=== PATIENT | male | born 1940 | race Caucasian/White ===

== ENCOUNTER → 2019-03-08 | Outpatient (CLI) | payer MEDICARE ==
[~2019-03-08] MED LIST: ALLO300 PO; AMLO5 PO; ATOR10 PO; DULO60 PO; Doxazosin Mesyla8 MG PO; Glipizide-Metf1 EAC1 PO; HYDR1TAB94 PO; METO50 PO; METPRE4DP PO; ONE DAILY FOR1 EAC2 PO; PREG150 PO; SPIR25 PO; VITAMIN D35000 UNI1 PO; ZALE10; ZESTRIL40 MG PO
== END ==
LOC: PLD 14:31 → LAB SHORT 14:31
DX: D48.5 Neoplasm of uncertain behavior of skin (principal)
CPT/HCPCS: 88341; 88342

== ENCOUNTER → 2022-02-04 | Outpatient (CLI) | payer MEDICARE ==
[2022-02-04 11:34] LABS: Creatinine, Urine Random 66.6 mg/dL (27.00-270.00); Microalb/Creat Ratio UR, Rand 492.492 mg/g (0.000-30.000)
[2022-02-04 12:27] LABS: Albumin, Blood 3.4 g/dL (3.4-5.0); Bilirubin, Total 0.4 mg/dL (0.1-1.0); Bun/Creatinine Ratio 14.3 (12.0-20.0); Calcium, Blood 9.5 mg/dL (8.5-10.1); Creatinine, Blood 1.33 mg/dL (0.60-1.20); Globulin, Blood 3.3 g/dL (2.2-4.0); Thyroid Stimulating Hormone 4.04 uIU/mL (0.360-4.800); Total Protein, Blood 6.7 g/dL (6.4-8.2)
== END | disposition home or self-care (01) ==
LOC: LAB SHORT 10:14 → LAB 10:14
PROVIDERS: Family Medicine
DX: E11.65 Type 2 diabetes mellitus with hyperglycemia (principal); E11.69 Type 2 diabetes mellitus with other specified complication; I10 Essential (primary) hypertension; E78.5 Hyperlipidemia, unspecified
CPT/HCPCS: 36415; 80053; 82043; 82570; 83036; 84443

== ENCOUNTER 2023-05-07 14:52 | Inpatient (IN) | payer MEDICARE ==
[~2023-05-07] VITALS: Ht 188 cm; Wt 161.0 kg
[2023-05-07 15:31] LABS: BASOPHILS ABSOLUTE AUTO 0.08 K/mm3 (0.00-0.23); BASOPHILS PERCENT AUTO 1 % (0-2); EOSINOPHILS ABSOLUTE AUTO 0.23 K/mm3 (0.00-0.68); EOSINOPHILS PERCENT AUTO 2 % (0-6); Hematocrit 37.4 % (37.0-53.0); IMMATURE GRAN ABSOLUTE AUTO 0.16 K/mm3 (0.00-0.10); IMMATURE GRAN PERCENT AUTO 1 % (0-1); LYMPHOCYTES ABSOLUTE AUTO 2.16 K/mm3 (0.84-5.20); LYMPHOCYTES PERCENT AUTO 14 % (21-46); MONOCYTES ABSOLUTE AUTO 1.17 K/mm3 (0.16-1.47); MONOCYTES PERCENT AUTO 8 % (4-13); Mean Corpuscular HGB 30.2 pg (26.0-34.0); Mean Corpuscular HGB Conc 32.1 g/dL (31.5-36.5); Mean Corpuscular Volume 94 fL (80-100); Mean Platelet Volume 10.9 fL (9.1-12.4); NEUTROPHILS PERCENT AUTO 75 % (41-73); Platelet Count 227 K/mm3 (150-400); RDW Coefficient Variation 13.6 % (11.7-14.2); Red Blood Cell Count 3.98 M/mm3 (4.30-5.90)
[2023-05-07 16:07] LABS: Albumin, Blood 2.7 g/dL (3.4-5.0); Albumin/Globulin Ratio 0.6 (0.8-1.8); Bilirubin, Total 0.3 mg/dL (0.1-1.0); Bun/Creatinine Ratio 25.9 (12.0-20.0); Calcium, Blood 9.1 mg/dL (8.5-10.1); Creatinine, Blood 2.39 mg/dL (0.60-1.20); Globulin, Blood 4.9 g/dL (2.2-4.0); Total Protein, Blood 7.6 g/dL (6.4-8.2)
[2023-05-07] MEDS ORDERED: OZEMPIC SC (20:06)
[2023-05-07] MEDS ORDERED: JARDIANCE PO (20:07)
[2023-05-07] MEDS ORDERED: METFORMIN (20:07)
[2023-05-07 21:09] LABS: Influenza A, PCR NEGATIVE (NEGATIVE); Influenza B, PCR NEGATIVE (NEGATIVE); Resp Syncytial Virus, PCR NEGATIVE (NEGATIVE); SARS-Cov-2 (COVID-19) PCR, MMC NEGATIVE (NEGATIVE)
[2023-05-07 22:28] VITALS: BP 145/71
[2023-05-08 04:33] VITALS: BP 140/50
--- NOTE | 2023-05-08 04:48 | NUR ---
SHIFT SUMMARY PATIENT WAS A RECENT ADMIT FOR SEPSIS THIS SHIFT. PATIENT HAD A LITER OF FLUID INFUSED AND IS COMPLETED. PATIENT HAS BEEN PLEASENT AND COOPERATIVE THIS SHIFT. VITAL SIGNS REVIEWED. PATIENT HAS NOT COMPLAINED OF PAIN, NAUSEA, SOB OR VOMITTING THIS SHIFT. BED IN LOCKED AND LOWEST POSITION. CALL LIGHT IN PLACE. WILL MONTIOR UNTIL SHIFT CHANGE.
[2023-05-08 05:19] LABS: BASOPHILS ABSOLUTE AUTO 0.05 K/mm3 (0.00-0.23); BASOPHILS PERCENT AUTO 0 % (0-2); EOSINOPHILS ABSOLUTE AUTO 0.25 K/mm3 (0.00-0.68); EOSINOPHILS PERCENT AUTO 2 % (0-6); Hematocrit 36.4 % (37.0-53.0); Hemoglobin 11.6 g/dL (13.5-17.5); IMMATURE GRAN ABSOLUTE AUTO 0.21 K/mm3 (0.00-0.10); IMMATURE GRAN PERCENT AUTO 2 % (0-1); LYMPHOCYTES ABSOLUTE AUTO 2.25 K/mm3 (0.84-5.20); LYMPHOCYTES PERCENT AUTO 16 % (21-46); MONOCYTES ABSOLUTE AUTO 1.15 K/mm3 (0.16-1.47); MONOCYTES PERCENT AUTO 8 % (4-13); Mean Corpuscular HGB Conc 31.9 g/dL (31.5-36.5); Mean Corpuscular Volume 94 fL (80-100); Mean Platelet Volume 10.8 fL (9.1-12.4); NEUTROPHILS ABSOLUTE AUTO 10.03 K/mm3 (1.96-9.15); NEUTROPHILS PERCENT AUTO 72 % (41-73); Platelet Count 250 K/mm3 (150-400); RDW Coefficient Variation 13.6 % (11.7-14.2); RDW Standard Deviation 47.2 fL (35.1-46.3); Red Blood Cell Count 3.87 M/mm3 (4.30-5.90); White Blood Cell Count 13.94 K/mm3 (4.00-11.30)
[2023-05-08 06:05] LABS: Albumin, Blood 2.5 g/dL (3.4-5.0); Albumin/Globulin Ratio 0.5 (0.8-1.8); Bilirubin, Total 0.3 mg/dL (0.1-1.0); Bun/Creatinine Ratio 26.4 (12.0-20.0); Calcium, Blood 8.8 mg/dL (8.5-10.1); Creatinine, Blood 2.12 mg/dL (0.60-1.20); Globulin, Blood 4.6 g/dL (2.2-4.0); Total Protein, Blood 7.1 g/dL (6.4-8.2)
[2023-05-08 07:12] VITALS: BP 128/67
[2023-05-08 13:05] LABS: Source, Urine Clean Catch
[2023-05-08 13:26] LABS: Appearance, Urine Clear (Clear); Bilirubin, Urine Neg (Neg); Blood, Urine Neg (Neg); Glucose Qualitative, Urine 4+ (Neg); Ketones, Urine Neg (Neg); Leukocyte Esterase, Urine Neg (Neg); Nitrite, Urine Neg (Neg); Protein, Urine Neg (Neg); Urobilinogen, Urine NORM (Normal)
[2023-05-08 14:08] LABS: Color, Urine Pale Yellow (P-Yellow)
[2023-05-08 15:14] VITALS: BP 114/58
--- NOTE | 2023-05-08 17:56 | NUR ---
SUMMARY- PT A/O X4. BEDREST, PT SITS AT THE EGDE OF BED FOR MEALS. GOT UP TO THE BATHROOM AND KNEEW STARTED TO BUCKLE. GOT A PT CONSULT, AND ORDER FOR BSC. TO CHAIR WITH GAIT BELT AND 2SBA BECAUSE KNEES ARE NOT RELIABLE. PT STARTED ON FLUID RESTRICTION AND BUMEX IV. HAD LG AMOUNT OF LIGHT CLEAR URINE OUTPUT. SENT UA. NEGATIVE FOR INFECTION. SATS ON ROOM AIR 88-90 ON ROOM AIR, HAS BEEN ON 4L USING HUMIDIFIED AIR. LUNGS CLEAR, DIM IN BASES. OCC MOIST NONPRODUCTIVE COUGH. ENC COUGHA AND DEEP BREATH. SCANT ANKLE EDEMA. NO SOB NOTED. TOLERATING FOOD AND FLUID. PT USES CALL LIGHT. WILL REPORT TO NOC RN
[2023-05-08 19:09] VITALS: BP 135/75
[2023-05-09 04:37] VITALS: BP 142/79
[2023-05-09 05:46] LABS: BASOPHILS ABSOLUTE AUTO 0.07 K/mm3 (0.00-0.23); BASOPHILS PERCENT AUTO 1 % (0-2); EOSINOPHILS ABSOLUTE AUTO 0.28 K/mm3 (0.00-0.68); EOSINOPHILS PERCENT AUTO 2 % (0-6); Hemoglobin 12.3 g/dL (13.5-17.5); IMMATURE GRAN ABSOLUTE AUTO 0.21 K/mm3 (0.00-0.10); IMMATURE GRAN PERCENT AUTO 2 % (0-1); LYMPHOCYTES ABSOLUTE AUTO 2.19 K/mm3 (0.84-5.20); LYMPHOCYTES PERCENT AUTO 18 % (21-46); MONOCYTES ABSOLUTE AUTO 0.89 K/mm3 (0.16-1.47); MONOCYTES PERCENT AUTO 7 % (4-13); Mean Corpuscular HGB Conc 31.5 g/dL (31.5-36.5); Mean Corpuscular Volume 95 fL (80-100); Mean Platelet Volume 10.8 fL (9.1-12.4); NEUTROPHILS ABSOLUTE AUTO 8.34 K/mm3 (1.96-9.15); NEUTROPHILS PERCENT AUTO 70 % (41-73); Platelet Count 254 K/mm3 (150-400); RDW Coefficient Variation 13.7 % (11.7-14.2); RDW Standard Deviation 48.2 fL (35.1-46.3); White Blood Cell Count 11.98 K/mm3 (4.00-11.30)
[2023-05-09 06:19] LABS: Albumin, Blood 2.6 g/dL (3.4-5.0); Albumin/Globulin Ratio 0.6 (0.8-1.8); Bilirubin, Total 0.3 mg/dL (0.1-1.0); Bun/Creatinine Ratio 28.1 (12.0-20.0); Calcium, Blood 9.3 mg/dL (8.5-10.1); Creatinine, Blood 1.96 mg/dL (0.60-1.20); Globulin, Blood 4.7 g/dL (2.2-4.0); Potassium, Blood 5.3 mmol/L (3.5-5.5); Total Protein, Blood 7.3 g/dL (6.4-8.2)
--- NOTE | 2023-05-09 06:34 | NUR ---
SHIFT SUMMARY NOC PT A/O X [address] [facility]. PLEASANT AND COOPERATIVE WITH CARE. NO ACUTE CHANGES TO REPORT. PT ON O2 4L/NC AND CONTINOUS BIOX MAINTAINING SPO2 > 94%. PT HAS CPAP ON WITH 4L O2 BLEED IN FOR SLEEPING. HS CBG 243 AND CNI. PT STILL UNSTEADY ON FEET AND AGREED TO USE CALL LIGHT WHEN NEEDING HELP FOR ELIMINATION NEEDS, BED ALARM ON FOR SAFETY. PT IS CURRENTLY RESTING WITH BED IN LOWEST POSITION, AND CALL LIGHT WITHIN REACH.
[2023-05-09 07:47] VITALS: BP 140/78
[2023-05-09 15:17] VITALS: BP 132/69
--- NOTE | 2023-05-09 18:56 | NUR ---
SUMMARY- PT A/O X4, SBA AMBULATES TO BATHROOM WITH WALKER AND GAIT BELT. TOLERATES ACTIVITY WELL, OCC KNEE ALEXANDRO, NEEDS SBA. LUNGS CLEAR, DIM, OCC SCATTERED COARSE, CLEARS SECRETIONS. REQUIRES OXYGEN STATES 2.5L AT HOME. USING 2.5 L WHEN AWAKE AND SATS 90-93%. TURN UP OXYGEN TO 5L WHILE NAPPING. STARTED ON IS/PEP TX TODAY. PLAN FOR DC TOMORROW, HOME WITH . WILL REPORT TO MARY GRACE RN.
[2023-05-09 19:38] VITALS: BP 131/77
[2023-05-10 03:24] VITALS: BP 139/74
--- NOTE | 2023-05-10 05:59 | NUR ---
SHIFT SUMMARY NOC A/O X 4. PLEASANT AND COOPERATIVE WITH CARE. NO ACUTE CHANGES TO REPORT. PT ON O2 4L/NC SPO2 > 94% ON BIOX. PT HAS CPAP WITH 5L O2 BLEED IN ON. PT POSSIBLE DISCHARGE HOME TODAY. PT IS CURRENTLY RESTING WITH BED IN LOWEST POSITION, AND CALL LIGHT WITHIN REACH.
[2023-05-10 07:39] VITALS: BP 118/61
--- NOTE | 2023-05-10 09:00 | NUR ---
pt laying in bed awake, a/ox3, [place], pleasant and cooperative with care, follows commands well, denies pain, but does report he feels a bit worse than yesterday as his ears are plugged up, and hearing feels like he's in a tube, Dr. Alfred was in to see him and is aware, lungs are dim t/o with a wet nonproductive cough, on 5 liters o2 via n/c, uses cpap at hs with 5 liter bleed in, hrr, ppp+2, cap refill <3sec, vs stable, afebrile, iv site to rac site is clear and patent, btx4, abd flat soft nontender, voids without diff, skin c/w/d, noam mackenzie, call light in reach.
[2023-05-10 09:02] LABS: BASOPHILS ABSOLUTE AUTO 0.08 K/mm3 (0.00-0.23); BASOPHILS PERCENT AUTO 1 % (0-2); EOSINOPHILS ABSOLUTE AUTO 0.27 K/mm3 (0.00-0.68); EOSINOPHILS PERCENT AUTO 2 % (0-6); Hematocrit 41.8 % (37.0-53.0); Hemoglobin 12.9 g/dL (13.5-17.5); IMMATURE GRAN ABSOLUTE AUTO 0.22 K/mm3 (0.00-0.10); IMMATURE GRAN PERCENT AUTO 2 % (0-1); LYMPHOCYTES ABSOLUTE AUTO 2.03 K/mm3 (0.84-5.20); LYMPHOCYTES PERCENT AUTO 17 % (21-46); MONOCYTES ABSOLUTE AUTO 0.81 K/mm3 (0.16-1.47); MONOCYTES PERCENT AUTO 7 % (4-13); Mean Corpuscular HGB 29.7 pg (26.0-34.0); Mean Corpuscular HGB Conc 30.9 g/dL (31.5-36.5); Mean Corpuscular Volume 96 fL (80-100); Mean Platelet Volume 10.9 fL (9.1-12.4); NEUTROPHILS ABSOLUTE AUTO 8.67 K/mm3 (1.96-9.15); NEUTROPHILS PERCENT AUTO 72 % (41-73); Platelet Count 266 K/mm3 (150-400); RDW Coefficient Variation 13.6 % (11.7-14.2); RDW Standard Deviation 48.8 fL (35.1-46.3); Red Blood Cell Count 4.34 M/mm3 (4.30-5.90); White Blood Cell Count 12.08 K/mm3 (4.00-11.30)
[2023-05-10 09:22] LABS: Bun/Creatinine Ratio 26.4 (12.0-20.0); Calcium, Blood 9.1 mg/dL (8.5-10.1); Creatinine, Blood 1.82 mg/dL (0.60-1.20); Potassium, Blood 5.4 mmol/L (3.5-5.5)
[2023-05-10 15:55] VITALS: BP 139/74
--- NOTE | 2023-05-10 18:30 | NUR ---
pt sits up in chair for meals, ambulated to the bathroom using his walker pretty steady on his feet, no further changes this shift, call light in reach.
[2023-05-10 20:55] VITALS: BP 107/57
--- NOTE | 2023-05-11 00:12 | NUR ---
PATIENT MAKES NEEDS KNOWN, ALERT AND ORIENTED, CONTINENT, NO SOB, PLESANT TO CARE, SLEEPING NOW WITH CPAP ON
[2023-05-11 03:44] VITALS: BP 109/71
[2023-05-11 05:30] LABS: BASOPHILS ABSOLUTE AUTO 0.09 K/mm3 (0.00-0.23); BASOPHILS PERCENT AUTO 1 % (0-2); EOSINOPHILS ABSOLUTE AUTO 0.35 K/mm3 (0.00-0.68); EOSINOPHILS PERCENT AUTO 3 % (0-6); Hematocrit 40.2 % (37.0-53.0); Hemoglobin 12.5 g/dL (13.5-17.5); IMMATURE GRAN ABSOLUTE AUTO 0.21 K/mm3 (0.00-0.10); IMMATURE GRAN PERCENT AUTO 2 % (0-1); LYMPHOCYTES ABSOLUTE AUTO 2.27 K/mm3 (0.84-5.20); LYMPHOCYTES PERCENT AUTO 22 % (21-46); MONOCYTES ABSOLUTE AUTO 0.75 K/mm3 (0.16-1.47); MONOCYTES PERCENT AUTO 7 % (4-13); Mean Corpuscular HGB 29.7 pg (26.0-34.0); Mean Corpuscular HGB Conc 31.1 g/dL (31.5-36.5); Mean Corpuscular Volume 96 fL (80-100); Mean Platelet Volume 10.7 fL (9.1-12.4); NEUTROPHILS ABSOLUTE AUTO 6.56 K/mm3 (1.96-9.15); NEUTROPHILS PERCENT AUTO 64 % (41-73); Platelet Count 259 K/mm3 (150-400); RDW Coefficient Variation 13.5 % (11.7-14.2); RDW Standard Deviation 47.5 fL (35.1-46.3); Red Blood Cell Count 4.21 M/mm3 (4.30-5.90); White Blood Cell Count 10.23 K/mm3 (4.00-11.30)
--- NOTE | 2023-05-11 05:33 | NUR ---
NO ACUTE CHANGES, PATIENT ALERT AND ORIENTED X4, USES CALL LIGHT WHEN NEEDING TO GET UP, WORE THE CPAP THROUGH OUT THE NIGHT, REPORTS SLEEPING WELL, CALL LIGHT WITH IN REACH, WILL RELAY TO PM RN
[2023-05-11 06:05] LABS: Bun/Creatinine Ratio 25.9 (12.0-20.0); Calcium, Blood 9.6 mg/dL (8.5-10.1); Creatinine, Blood 1.97 mg/dL (0.60-1.20); Potassium, Blood 5.5 mmol/L (3.5-5.5)
[2023-05-11 08:16] VITALS: BP 103/65
--- NOTE | 2023-05-11 16:39 | NUR ---
SHIFT SUMMARY PT RESTING QUIETLY ON CPAP AT START OF SHIFT. WAKES EASILY FOR CARE. NEWHALEN D/T AN EAR INFECTION. UP TO EOB, INDEPENDENTLY, TO EAT BREAKFAST. PT LATER UP TO BTHRM WITH 1P SBA. ABLE TO WORK WITH THERAPY. AMBULATED IN HALLS WITH RT FOR HOME O2 EVAL. PT IMPROVING. POSSIBLE D/C TO HOME WITH H/H. PLEASANT AND CO-OP WITH CARE. NO C/O. CALL LT IN REACH. COMPLIANT WITH FLUID RESTRICTION.
[2023-05-11 19:01] LABS: BASOPHILS ABSOLUTE AUTO 0.09 K/mm3 (0.00-0.23); BASOPHILS PERCENT AUTO 1 % (0-2); EOSINOPHILS ABSOLUTE AUTO 0.37 K/mm3 (0.00-0.68); EOSINOPHILS PERCENT AUTO 3 % (0-6); Hematocrit 39.7 % (37.0-53.0); Hemoglobin 12.7 g/dL (13.5-17.5); IMMATURE GRAN ABSOLUTE AUTO 0.19 K/mm3 (0.00-0.10); IMMATURE GRAN PERCENT AUTO 2 % (0-1); LYMPHOCYTES ABSOLUTE AUTO 2.55 K/mm3 (0.84-5.20); LYMPHOCYTES PERCENT AUTO 21 % (21-46); MONOCYTES ABSOLUTE AUTO 0.88 K/mm3 (0.16-1.47); MONOCYTES PERCENT AUTO 7 % (4-13); Mean Corpuscular HGB 30.2 pg (26.0-34.0); Mean Corpuscular Volume 94 fL (80-100); Mean Platelet Volume 10.7 fL (9.1-12.4); NEUTROPHILS ABSOLUTE AUTO 8.08 K/mm3 (1.96-9.15); NEUTROPHILS PERCENT AUTO 67 % (41-73); Platelet Count 279 K/mm3 (150-400); RDW Coefficient Variation 13.5 % (11.7-14.2); RDW Standard Deviation 46.8 fL (35.1-46.3); Red Blood Cell Count 4.21 M/mm3 (4.30-5.90); White Blood Cell Count 12.16 K/mm3 (4.00-11.30)
[2023-05-11 19:30] LABS: Albumin, Blood 2.7 g/dL (3.4-5.0); Albumin/Globulin Ratio 0.6 (0.8-1.8); Bilirubin, Total 0.2 mg/dL (0.1-1.0); Bun/Creatinine Ratio 25.1 (12.0-20.0); Calcium, Blood 9.3 mg/dL (8.5-10.1); Creatinine, Blood 1.99 mg/dL (0.60-1.20); Globulin, Blood 4.7 g/dL (2.2-4.0); Potassium, Blood 5.4 mmol/L (3.5-5.5); Total Protein, Blood 7.4 g/dL (6.4-8.2)
[2023-05-11 20:31] VITALS: BP 138/74
[2023-05-12 05:44] VITALS: BP 102/68
--- NOTE | 2023-05-12 06:05 | NUR ---
POSSIBLE HOME TODAY, SATS ON RA LAST NIGHT 86%, RECOVERED EASILY WITH 3 L O2 VIA NC, ALERT AND ORIENTED MAKES HIS NEEDS KNOWN, LOWER ELWHA FROM EAR INFECTION CALL LIGHT WITH IN REACH, WILL RELAY TO AM RN
[2023-05-12 07:22] VITALS: BP 125/72
[2023-05-12 15:23] VITALS: BP 126/77
[2023-05-12 18:09] VITALS: BP 122/74
--- NOTE | 2023-05-12 18:45 | NUR ---
SUMMARY- PT AAOX4 SBA THIS SHIFT. PT HAD COMPLAINTS OF CAMEJO AND LEFT EAR PAIN. TYLENOL GIVEN. MINIMAL COUGH. YELLOW THICK SPUTUM. SAMPLE SENT.
[2023-05-12 21:33] VITALS: BP 129/80
[2023-05-13 04:48] LABS: BASOPHILS ABSOLUTE AUTO 0.09 K/mm3 (0.00-0.23); BASOPHILS PERCENT AUTO 1 % (0-2); EOSINOPHILS ABSOLUTE AUTO 0.36 K/mm3 (0.00-0.68); EOSINOPHILS PERCENT AUTO 3 % (0-6); Hematocrit 40.5 % (37.0-53.0); Hemoglobin 12.7 g/dL (13.5-17.5); IMMATURE GRAN ABSOLUTE AUTO 0.12 K/mm3 (0.00-0.10); IMMATURE GRAN PERCENT AUTO 1 % (0-1); LYMPHOCYTES ABSOLUTE AUTO 2.78 K/mm3 (0.84-5.20); LYMPHOCYTES PERCENT AUTO 24 % (21-46); MONOCYTES ABSOLUTE AUTO 0.95 K/mm3 (0.16-1.47); MONOCYTES PERCENT AUTO 8 % (4-13); Mean Corpuscular HGB 29.9 pg (26.0-34.0); Mean Corpuscular HGB Conc 31.4 g/dL (31.5-36.5); Mean Corpuscular Volume 95 fL (80-100); Mean Platelet Volume 10.7 fL (9.1-12.4); NEUTROPHILS ABSOLUTE AUTO 7.15 K/mm3 (1.96-9.15); NEUTROPHILS PERCENT AUTO 63 % (41-73); Platelet Count 249 K/mm3 (150-400); RDW Coefficient Variation 13.3 % (11.7-14.2); RDW Standard Deviation 46.6 fL (35.1-46.3); Red Blood Cell Count 4.25 M/mm3 (4.30-5.90); White Blood Cell Count 11.45 K/mm3 (4.00-11.30)
[2023-05-13 05:44] VITALS: BP 127/76
[2023-05-13 06:15] LABS: Bun/Creatinine Ratio 23.1 (12.0-20.0); Calcium, Blood 9.5 mg/dL (8.5-10.1); Creatinine, Blood 2.12 mg/dL (0.60-1.20); Potassium, Blood 5.7 mmol/L (3.5-5.5)
[2023-05-13 07:17] VITALS: BP 124/78
[2023-05-13 11:31] LABS: Bun/Creatinine Ratio 22.1 (12.0-20.0); Calcium, Blood 9.4 mg/dL (8.5-10.1); Creatinine, Blood 1.99 mg/dL (0.60-1.20)
--- NOTE | 2023-05-13 15:17 | NUR ---
SHIFT NOTE MR ELI IS A&OX4. +[place]. USING CALL LIGHT BEFORE GETTING UP WITH S/B ASSIST AND FWW TO WALK INTO THE BATHROOM. LEANS INTO WALKER, NO PROBLEMS WITH HIS KNEES BUCKLING. ON CONTINUOUS PULSE OX MONITOR, NEEDING 3L N/C O2 WHEN LYING DOWN IN BED. ENCOURAGED TO DO INCENTIVE SPIROMETER, 750-100CC WITH DECENT TECHNIQUE. HE SAID HE IS USING FLUTTER VALVE ALSO. NO C/O PAIN. BED LOW, CALL LIGHT IN REACH.
[2023-05-13 15:57] VITALS: BP 125/74
[2023-05-13] MEDS ORDERED: AMOCLA875 PO (16:23)
--- NOTE | 2023-05-13 17:00 | NUR ---
DISCHARGE MR BENITEZ WAS DISCHARGED HOME ON ROOM AIR. HE AND HIS VERBALISED UNDERSTANDING OF WRITTEN AND VERBAL DISCHARGE INSTRUCTIONS INCLUDING USE OF OXYGEN NASAL CANULA WHEN HE IS LYING DOWN IN THE DAY TIME. THEY HAVE A CONCENTRATOR AT HOME AND HIS SAID THEY HAVE A PULSE OX MONITOR. PIV REMOVED INTACT. PT ASSISTED TO DRESS AND HE LEFT VIA W/C WITH PRESSROOM SUPERVISOR ESCORT AND HIS AT 1700HRS. HE DENIED PAIN OR OTHER CONCERNS AT TIME OF DISCHARGE.
== END 2023-05-13 17:05 | disposition home health service (06) | DRG 871 ==
LOC: ER 14:52 → MEDS 21:19 → ER 21:19 → MEDS 21:19
PROVIDERS: Emergency Medicine; Family Medicine; Internal Medicine; Physician Assistant; ADMIT Internal Medicine
PROC: 3E03329 Introduction of Other Anti-infective into Peripheral Vein, Percutaneous Approach (ICD-10-PCS; principal; 2023-05-07)
PROC: 5A09457 Assistance with Respiratory Ventilation, 24-96 Consecutive Hours, Continuous Positive Airway Pressure (ICD-10-PCS; 2023-05-07)
DX: A41.9 Sepsis, unspecified organism (principal); J18.9 Pneumonia, unspecified organism; J96.21 Acute and chronic respiratory failure with hypoxia; N17.9 Acute kidney failure, unspecified; Z68.41 Body mass index [BMI] 40.0-44.9, adult; E11.22 Type 2 diabetes mellitus with diabetic chronic kidney disease; I12.9 Hypertensive chronic kidney disease with stage 1 through stage 4 chronic kidney disease, or unspecified chronic kidney disease; Z66 Do not resuscitate; M54.9 Dorsalgia, unspecified; G47.33 Obstructive sleep apnea (adult) (pediatric); N18.31 Chronic kidney disease, stage 3a; E66.01 Morbid (severe) obesity due to excess calories; H66.92 Otitis media, unspecified, left ear; G89.29 Other chronic pain; M10.9 Gout, unspecified; N40.0 Benign prostatic hyperplasia without lower urinary tract symptoms; Z88.8 Allergy status to other drugs, medicaments and biological substances; Z79.84 Long term (current) use of oral hypoglycemic drugs; Z79.891 Long term (current) use of opiate analgesic; Z71.3 Dietary counseling and surveillance; Z79.890 Hormone replacement therapy; Z11.52 Encounter for screening for COVID-19; Z87.891 Personal history of nicotine dependence
CPT/HCPCS: 0241U; 36415; 71046; 80048; 80053; 81003; 82947; 83605; 83880; 84145; 84484; 85025; 87040; 87070; 87205; 93005; 93010; 94660; 94761; 94762; 96365; 96366; 97110; 97116; 97162; 97165; 97530; 97535; 99285-25; A9270; J0456; J0696; J1650; J2543; J7030; J7050

== ENCOUNTER 2024-06-29 04:51 | Inpatient (IN) | payer MEDICARE ==
[~2024-06-29] VITALS: Ht 188 cm; Wt 177.0 kg
[~2024-06-29 04:51] MED LIST changes: +AMOCLA875 PO; +JARDIANCE PO; +METFORMIN; +OZEMPIC SC
[2024-06-29] MEDS ORDERED: HYDRA25 PO (05:18)
[2024-06-29] MEDS ORDERED: XANAX0.25 MG PO (05:18)
[2024-06-29 05:21] LABS: BASOPHILS ABSOLUTE AUTO 0.03 K/mm3 (0.00-0.23); BASOPHILS PERCENT AUTO 0 % (0-2); EOSINOPHILS PERCENT AUTO 0 % (0-6); Hematocrit 40.3 % (37.0-53.0); Hemoglobin 13.5 g/dL (13.5-17.5); IMMATURE GRAN ABSOLUTE AUTO 0.19 K/mm3 (0.00-0.10); IMMATURE GRAN PERCENT AUTO 1 % (0-1); LYMPHOCYTES ABSOLUTE AUTO 0.86 K/mm3 (0.84-5.20); LYMPHOCYTES PERCENT AUTO 4 % (21-46); MONOCYTES ABSOLUTE AUTO 1.53 K/mm3 (0.16-1.47); MONOCYTES PERCENT AUTO 8 % (4-13); Mean Corpuscular HGB 31.1 pg (26.0-34.0); Mean Corpuscular HGB Conc 33.5 g/dL (31.5-36.5); Mean Corpuscular Volume 93 fL (80-100); Mean Platelet Volume 12.1 fL (9.1-12.4); NEUTROPHILS ABSOLUTE AUTO 17.34 K/mm3 (1.96-9.15); NEUTROPHILS PERCENT AUTO 87 % (41-73); Platelet Count 111 K/mm3 (150-400); RDW Standard Deviation 47.5 fL (35.1-46.3); Red Blood Cell Count 4.34 M/mm3 (4.30-5.90); White Blood Cell Count 19.95 K/mm3 (4.00-11.30)
[2024-06-29 05:43] LABS: CORONAVIRUS COVID-19 AG Negative (NEGATIVE); INFLUENZA A AG Negative (NEGATIVE); INFLUENZA B AG Negative (NEGATIVE)
[2024-06-29 05:44] LABS: Albumin, Blood 3.4 g/dL (3.4-5.0); Albumin/Globulin Ratio 0.9 (0.8-1.8); Bilirubin, Total 0.8 mg/dL (0.1-1.0); Calcium, Blood 8.9 mg/dL (8.5-10.1); Creatinine, Blood 2.86 mg/dL (0.60-1.20); Globulin, Blood 3.7 g/dL (2.2-4.0); Potassium, Blood 5.3 mmol/L (3.5-5.5); Total Protein, Blood 7.1 g/dL (6.4-8.2)
[2024-06-29 06:25] LABS: Magnesium, Blood 2.4 mg/dL (1.6-2.4)
[2024-06-29] MEDS ORDERED: Acetaminophen 500 MG Tab PO ONE (06:30)
[2024-06-29] MEDS ORDERED: CefTRIAXone Sodium 1,000 MG in NS 100 ML IV ONE (06:30)
[2024-06-29] MEDS ORDERED: Azithromycin 500 MG in NS 250 ML IV ONE (07:35)
[2024-06-29] MEDS ORDERED: FLU VACC TS2024-25(6MOS UP)/PF 45 MCG/0.5 ML SYRINGE IM PRN (09:40)
[2024-06-29] MEDS ORDERED: NS 1,000 ML IV SCH ×3 (09:40→19:00)
[2024-06-29 13:49] VITALS: BP 127/64
[2024-06-29 14:33] LABS: Bun/Creatinine Ratio 16.3 (12.0-20.0); Calcium, Blood 9.1 mg/dL (8.5-10.1); Potassium, Blood 5.2 mmol/L (3.5-5.5)
[2024-06-29] MEDS ORDERED: JARDIANCE25 MG PO (14:35)
[2024-06-29] MEDS ORDERED: METF500 PO (14:35)
[2024-06-29] MEDS ORDERED: OZEMPIC2 MG/0.75 SC (14:37)
[2024-06-29 17:49] VITALS: BP 132/60
--- NOTE | 2024-06-29 17:54 | NUR ---
SHIFT SUMMARY RECEIVED REPORT FROM ANTOLIN RICHARDSON RN. PT ARRIVED TO PCU IA ER IZZY. PT SLID FROM ER BED TO PCU BED. LIFT PLACED UNDER PT. PT REPORTS WALKER/CANE AT HOME BUT HAS NOT BEEN ABLE TO WALK DUE TO WEAKNESS SINCE BEING SICK. ALERT AND ORIENTED X4, CALM, COOPERATIVE TO CARE. HR IN THE 80'S, SINUS RHYTHM, DENIES ANY CP/PRESSURE, NUMB/TINGLING, SBP IN THE 120'S. O2 >92% ON 3L VIA NC, RR OF 20, AND BREATHING HEAVY BUT DENIES ANY SOB. +BS, ABD DISTENDED BUT PT STATES NORMAL. HE REPORTS DIARRHEA THAT STARTED THIS AM, HE HAD A SMALL INCONTINENT LOOSE BM THIS SHIFT. URINAL AT BEDSIDE, PT NEEDS ASSISTANCE WITH URINAL, URINE DARK YELLOW IN COLOR. +2 PITTING EDEMA OF BLE, PT/ REPORT LEFT IS USUALLY MORE SWOLLEN THAN THE RIGHT. NS RUNNING PER EMAR. PROVIDER TO BEDSIDE TO DISCUSS PLAN. ABD CT ORDERED, PT COMPELTED CT THIS AFTERNOON. NEPHROLOGY CONSULTED. PT SITTING UP IN BED EATING DINNER. HE DENIED ANY QUESTIONS/CONCERNS AT THIS TIME. WILL MONITOR PT AND REPORT TO TRAFFIC CONTROL TECHNICIAN RN.
[2024-06-29 19:27] VITALS: BP 125/46
[2024-06-29] MEDS ORDERED: Atorvastatin 10 MG Tab PO SCH (21:00)
[2024-06-29] MEDS ORDERED: Tamsulosin HCl 0.4 MG Cap PO SCH (21:00)
[2024-06-29] MEDS ORDERED: Lactobacil 2-S.Thermo-Bifido 1 1 Cap PO SCH (21:00)
[2024-06-29 22:37] LABS: Source, Urine Clean Catch
[2024-06-29 22:46] LABS: Bilirubin, Urine Neg (Neg); Blood, Urine 4+ (Neg); Glucose Qualitative, Urine 4+ (Neg); Ketones, Urine Neg (Neg); Leukocyte Esterase, Urine 2+ (Neg); Nitrite, Urine Pos (Neg); Protein, Urine 2+ (Neg); Specific Gravity, Urine 1.015 (1.003-1.022); Urobilinogen, Urine NORM (Normal)
[2024-06-29] MEDS ORDERED: Insulin Human Lispro 100 Units/ML 3ML Syringe SC SCH (23:00)
[2024-06-29 23:37] LABS: Appearance, Urine Hazy (Clear); Color, Urine Yellow (P-Yellow)
[2024-06-29 23:38] LABS: Red Blood Cells, Urine 0-2 /hpf (0-2); White Blood Cells, Urine 25-50 /hpf (0-5)
[2024-06-29 23:39] LABS: Bacteria Many /hpf; Squamous Epithelial Cells Few /hpf (Few)
[2024-06-30 00:59] VITALS: BP 107/56
[2024-06-30 04:57] LABS: BASOPHILS ABSOLUTE AUTO 0.03 K/mm3 (0.00-0.23); BASOPHILS PERCENT AUTO 0 % (0-2); EOSINOPHILS PERCENT AUTO 0 % (0-6); Hematocrit 39.2 % (37.0-53.0); Hemoglobin 12.8 g/dL (13.5-17.5); IMMATURE GRAN ABSOLUTE AUTO 0.16 K/mm3 (0.00-0.10); IMMATURE GRAN PERCENT AUTO 1 % (0-1); LYMPHOCYTES ABSOLUTE AUTO 0.91 K/mm3 (0.84-5.20); LYMPHOCYTES PERCENT AUTO 5 % (21-46); MONOCYTES ABSOLUTE AUTO 1.16 K/mm3 (0.16-1.47); MONOCYTES PERCENT AUTO 7 % (4-13); Mean Corpuscular HGB 30.5 pg (26.0-34.0); Mean Corpuscular HGB Conc 32.7 g/dL (31.5-36.5); Mean Corpuscular Volume 93 fL (80-100); Mean Platelet Volume 12.6 fL (9.1-12.4); NEUTROPHILS ABSOLUTE AUTO 15.43 K/mm3 (1.96-9.15); NEUTROPHILS PERCENT AUTO 87 % (41-73); Platelet Count 91 K/mm3 (150-400); RDW Coefficient Variation 14.2 % (11.7-14.2); RDW Standard Deviation 49.1 fL (35.1-46.3); White Blood Cell Count 17.69 K/mm3 (4.00-11.30)
[2024-06-30 05:23] LABS: Albumin, Blood 2.9 g/dL (3.4-5.0); Albumin/Globulin Ratio 0.7 (0.8-1.8); Bilirubin, Total 0.5 mg/dL (0.1-1.0); Bun/Creatinine Ratio 18.8 (12.0-20.0); Calcium, Blood 8.5 mg/dL (8.5-10.1); Creatinine, Blood 2.71 mg/dL (0.60-1.20); Globulin, Blood 3.9 g/dL (2.2-4.0); Potassium, Blood 4.8 mmol/L (3.5-5.5); Total Protein, Blood 6.8 g/dL (6.4-8.2)
[2024-06-30 07:31] VITALS: BP 159/72
--- NOTE | 2024-06-30 07:46 | NUR ---
AM NOTE Pt alert, oriented x4; calm and cooperative with care. Pt resting in bed, able to assist with turning. Pt denies chest pain/pressure, sob, nausea, and dizziness. Reporting numb/tingling in hands, states has been going on for awhile. Tele sinus tach, bp elevated. Edema noted to ble, lle worse than rle. Spo2 >90% on 4l o2 via nc, shallow, tachypnic breathing. Abd severe distended, firm, tender to right side, denies nausea, but having frequent loose stools. Other vss. Pt expressed concern of not getting out of bed, encouraged pt to move legs, plans to get up with lift to chair later this am. Will continue to monitor.
[2024-06-30] MEDS ORDERED: CefTRIAXone Sodium 1,000 MG in NS 100 ML IV SCH (09:00)
[2024-06-30] MEDS ORDERED: Azithromycin 500 MG in NS 250 ML IV SCH (09:00)
[2024-06-30] MEDS ORDERED: Allopurinol 300 MG Tab PO SCH (09:00)
[2024-06-30] MEDS ORDERED: Cholecalciferol 1000 Unit Tablet (=25MCG) PO SCH (09:00)
[2024-06-30] MEDS ORDERED: Enoxaparin 40 MG/0.4 ML SYR SC SCH (09:00)
[2024-06-30 11:43] VITALS: BP 137/65
[2024-06-30 12:43] LABS: Adenovirus F 40/41 Not Detected (NOT DETECT); Astrovirus Not Detected (NOT DETECT); Campylobacter Sp Not Detected (NOT DETECT); Cryptosporidium Not Detected (NOT DETECT); Cyclospora Cayetanensis Not Detected (NOT DETECT); E. Coli O157 Not Detected (NOT DETECT); Entamoeba Histolytica Not Detected (NOT DETECT); Enteroaggregative E. coli-EAEC Not Detected (NOT DETECT); Enteropathogenic E. coli-EPEC Not Detected (NOT DETECT); Enterotoxigenic E. coli-ETEC Not Detected (NOT DETECT); Giardia Lamblia Not Detected (NOT DETECT); Norovirus GI/GII Not Detected (NOT DETECT); Plesiomonas Shigelloides Not Detected (NOT DETECT); Rotavirus A Not Detected (NOT DETECT); Salmonella Sp Not Detected (NOT DETECT); Sapovirus Not Detected (NOT DETECT); Shiga Toxin-prod E. coli-STEC Not Detected (NOT DETECT); Shigella/Enteroin E. coli-EIEC Not Detected (NOT DETECT); Vibrio Cholerae Not Detected (NOT DETECT); Vibrio Sp Not Detected (NOT DETECT); Yersinia Enterocolitica Not Detected (NOT DETECT)
[2024-06-30] MEDS ORDERED: Acetaminophen 500 MG Tab PO PRN (13:40)
[2024-06-30] MEDS ORDERED: Ondansetron 4 MG SoluTab MM PRN (13:45)
[2024-06-30 15:03] VITALS: BP 157/79
[2024-06-30] MEDS ORDERED: Metoprolol Succinate 50 MG TABCR PO ONE (16:00)
[2024-06-30] MEDS ORDERED: NS 1,000 ML IV SCH (16:35)
--- NOTE | 2024-06-30 17:36 | NUR ---
Shift Summary Pt alert, oriented x4; calm and cooperative with care. Pt resting in bed, reporting increased weakness and fatigue, notified Dr Haynes new orders for physical therapy. Titrated pt down to 3l o2 via nc, spo2 >90%. Pt having multiple BM t/o shift. Pt hr elevated 110-120's and elevated bp noted, notified MD for majority of shift, started metoprolol this evening. Other vss. No other acute changes noted. Will continue to monitor.
[2024-06-30] MEDS ORDERED: Banana Flakes/Tos 1 EA Powder Pack PO PRN (19:50)
[2024-06-30 20:00] VITALS: BP 140/66
--- NOTE | 2024-06-30 21:35 | NUR ---
THIS RN ASSUMED CARE OF PT AT 1900, PT IS ALERT AND ORIENTED X4, FOLLOWS COMMANDS AND WAS PLEASANT. PT HEART RATE IN THE 100s, BLOOD PRESSURE STABLE AT 140/66, PT DENIES CHEST PRESSURE. PT IS ON CPAP AND WEARS 3-4L NC WHEN OFF CPAP, PT SATTING >92%, PT DENIES SHORTNESS OF BREATH UPON ASSESSMENT. Q2HR TURNS, PT WANTED TYLENOL FOR SLEEP TONIGHT. NO OTHER INTERVENTIONS AT THIS TIME, PLAN OF CARE CONTINUED.
[2024-07-01] VITALS (8 sets, daily range): BP systolic 132–174; BP diastolic 59–92
[2024-07-01] MEDS ORDERED: HydrALAZINE HCl 20 MG / ML 1ML Vial IV ONE (03:30)
[2024-07-01 05:43] LABS: Albumin, Blood 2.6 g/dL (3.4-5.0); Anion Gap 13 mmol/L (3-11); Blood Urea Nitrogen 54 mg/dL (8-24); Bun/Creatinine Ratio 22.1 (12.0-20.0); CO2, Blood 21 mmol/L (21-32); Calcium, Blood 8.6 mg/dL (8.5-10.1); Chloride, Blood 111 mmol/L (98-108); Creatinine, Blood 2.44 mg/dL (0.60-1.20); Glomerular Filtration Rate 26 (60-); Glucose, Blood 242 mg/dL (70-99); Phosphorus, Blood 3.5 mg/dL (2.5-4.9); Potassium, Blood 4.8 mmol/L (3.5-5.5); Sodium, Blood 140 mmol/L (136-145)
--- NOTE | 2024-07-01 06:04 | NUR ---
PT SUMMARY PT WAS ABLE TO STAND AT BEDSIDE X2 ASSIST, PT DID VERY WELL, TOLERATED WELL AND FELT A LOT BETTER AFTERWARDS. NO OTHER NEW ACUTE EVENTS TO REPORT OVERNIGHT. PLAN OF CARE CONTINUED.
[2024-07-01] MEDS ORDERED: Insulin Glargine-Yfgn 100 Unit/mL 3 ML SYR SC SCH (07:00)
[2024-07-01] MEDS ORDERED: Insulin Human Lispro 100 Units/ML 3ML Syringe SC SCH (07:30)
[2024-07-01] MEDS ORDERED: Metoprolol Succinate 50 MG TABCR PO SCH ×2 (09:00→21:00)
[2024-07-01] MEDS ORDERED: Allopurinol 100 MG Tab PO SCH (09:00)
[2024-07-01] MEDS ORDERED: Metoprolol Succinate 50 MG TABCR PO ONE (11:00)
[2024-07-01] MEDS ORDERED: HydrALAZINE HCl 25 MG Tab PO PRN (18:00)
[2024-07-01] MEDS ORDERED: AmLODIPine Besylate 5 MG Tab PO SCH (18:00)
--- NOTE | 2024-07-01 19:20 | NUR ---
Shift Summary Pt alert, oriented x4; calm and cooprative with care. Pt reporting back discomfort and headache, medicated x1 tylenolol with positive results. Pt denies chest pain/pressure, sob, nausea, and dizziness. Tele sinus 80's, bp elevated, notified Parag JACKSPOOLER, new order entered, administered new orders. Spo2 >90% on 1-2l o2 via nc while awake, on home cpap with 5l bleed in while sleeping, ls diminished, shallow breathing noted at times, encouraged pt with deep breathing. Abd severe distended, firm, nontender +bt t/o. Edema noted ble, left worse than right. Other vss. Attempted to get patient up in recliner, refused several time t/o shift, wanting to sleep, pt agreeable to get in recliner tomorrow. Pt has been up on side of bed for meals. Report given to oncoming rn.
--- NOTE | 2024-07-02 00:44 | NUR ---
SHIFT SUMMARY NO ACUTE EVENTS. PL SLEPT WELL WITH THEIR CPAP.
[2024-07-02 03:11] VITALS: BP 155/63
[2024-07-02 05:28] LABS: BASOPHILS ABSOLUTE AUTO 0.02 K/mm3 (0.00-0.23); BASOPHILS PERCENT AUTO 0 % (0-2); EOSINOPHILS ABSOLUTE AUTO 0.02 K/mm3 (0.00-0.68); EOSINOPHILS PERCENT AUTO 0 % (0-6); Hematocrit 38.2 % (37.0-53.0); Hemoglobin 12.3 g/dL (13.5-17.5); IMMATURE GRAN ABSOLUTE AUTO 0.03 K/mm3 (0.00-0.10); IMMATURE GRAN PERCENT AUTO 1 % (0-1); LYMPHOCYTES ABSOLUTE AUTO 0.41 K/mm3 (0.84-5.20); LYMPHOCYTES PERCENT AUTO 8 % (21-46); MONOCYTES ABSOLUTE AUTO 0.48 K/mm3 (0.16-1.47); MONOCYTES PERCENT AUTO 9 % (4-13); Mean Corpuscular HGB 30.2 pg (26.0-34.0); Mean Corpuscular HGB Conc 32.2 g/dL (31.5-36.5); Mean Corpuscular Volume 94 fL (80-100); Mean Platelet Volume 12.2 fL (9.1-12.4); NEUTROPHILS ABSOLUTE AUTO 4.44 K/mm3 (1.96-9.15); NEUTROPHILS PERCENT AUTO 82 % (41-73); Platelet Count 78 K/mm3 (150-400); RDW Coefficient Variation 14.3 % (11.7-14.2); RDW Standard Deviation 49.7 fL (35.1-46.3); Red Blood Cell Count 4.07 M/mm3 (4.30-5.90)
[2024-07-02 06:24] LABS: Albumin, Blood 2.5 g/dL (3.4-5.0); Anion Gap 12 mmol/L (3-11); Blood Urea Nitrogen 50 mg/dL (8-24); Bun/Creatinine Ratio 25.3 (12.0-20.0); CO2, Blood 22 mmol/L (21-32); Calcium, Blood 8.3 mg/dL (8.5-10.1); Chloride, Blood 110 mmol/L (98-108); Creatinine, Blood 1.98 mg/dL (0.60-1.20); Glomerular Filtration Rate 33 (60-); Glucose, Blood 211 mg/dL (70-99); Phosphorus, Blood 3.2 mg/dL (2.5-4.9); Potassium, Blood 4.6 mmol/L (3.5-5.5); Sodium, Blood 139 mmol/L (136-145)
[2024-07-02 07:14] VITALS: BP 154/78
[2024-07-02] MEDS ORDERED: Empagliflozin 25 MG TAB PO SCH (11:00)
[2024-07-02] MEDS ORDERED: Insulin Human Lispro 100 Units/ML 3ML Syringe SC SCH (11:30)
[2024-07-02 15:18] VITALS: BP 136/79
--- NOTE | 2024-07-02 16:41 | NUR ---
SHIFT SUMMARY: PT WITH NO ACUTE EVENTS THIS SHIFT. ALERT AND ORIENTED X4, ABLE TO FOLLOW COMMANDS AND MAKE NEEDS KNOWN. BP AND HR STABLE. AFEBRILE. SP02 >94% ON 4L NC. LUNG SOUNDS DIM. PULSES STRONG AND EQUAL THROUGHOUT. ABD DISTENDED, NON TENDER, BOWEL SONDS +. PUREWICK IN PLACE, CONNCTED TO LCS. PT ABLE TO STAND AND PIVOT TO RECLINER THIS SHIFT WITH TWO PERSON ASSIST. TOLERATED WELL. CBG STABLE, COVERED PER EMAR. AT BEDSIDE THIS AM, UPDATED ON PT PLAN OF CARE. BED IN LOW, CALL LIGHT IN REACH, WILL REPORT TO ONCOMING RN.
[2024-07-02] MEDS ORDERED: Lisinopril 20 MG Tab PO SCH (18:00)
[2024-07-02 20:02] VITALS: BP 114/60
--- NOTE | 2024-07-02 20:35 | NUR ---
ASSUMPTION OF CARE ASSUMED PT'S CARE AT 1900,BEDSIDE REPORT COMPLETED WITH DAYSDCFT NURSE.PT ALERT,WEARING A CPAP,NS INFUSING AT 125ML/HR.PT DENIES PAIN,DENIES NAUSEA,DENIES SOB AT REST.PLAN OF CARE REVIEWED,PT VERBALIZES UNDERSTANDING.PT NOTIFIED OF TRANSFER TO MED FLOOR.DENIES NEEDS,CALL LIGHT AND PT'S ITEMS WITHIN REACH.WILL CONTINUE TO MONITOR.
--- NOTE | 2024-07-02 20:55 | NUR ---
CALLED FOR REPORT, AWAITING RETURN CALL AT THIS TIME.
--- NOTE | 2024-07-02 21:32 | NUR ---
REPORT RECEIVED FROM ELIZABETH SPRAY GUN STRIPER AND AWAITING PT T/F TO ROOM 331.
--- NOTE | 2024-07-02 22:08 | NUR ---
TRANSFER TO ROOM 331 PT TRANSFERRED AT 2200 TO RM 331 VIA BED.ALL BELONGINGS,CHART AND MEDS SENT WITH PT.REPORT GIVEN TO RECEIVING NURSE PRIOR TO TRANSPORT.
--- NOTE | 2024-07-03 04:31 | NUR ---
T/F AND SUMMARY: PT T/F VIA BED TO ROOM 331 AT 2202. HE'S A/OX4, WAS ORIENTED TO NEW ROOM AND CALL SYSTEM AND IS ABLE TO MAKE NEEDS KNOWN. HE'S REMAINED IN BED THIS SHIFT W/TURN SCHEDULE MAINTAINED BUT IS ABLE TO T/F W/2PA. PUREWIC IS INTACT AND CONNECTED TO LCS. POWDER APPLIED TO REDDENED GROIN, ROB AREA AND FOLDS. PT ON 2L O2 VIA NC AND CPAP BLEED IN WHILE ASLEEP. CONT BIOX IS INTACT AND SPO2 WNL. LS CLEAR AND DIM T/O W/SOB NOTED UPON EXERTION. HE'S NSR AT 60'S BPM W/BBB AND 1ST DEGREE AV BLOCK. NS INFUSES AT 125 ML/HR. NO ACUTE CHANGES, VSS/AFEBRILE. WCTM AND REPORT TO DAY RN.
[2024-07-03 05:22] VITALS: BP 151/64
[2024-07-03 07:09] LABS: BASOPHILS ABSOLUTE AUTO 0.03 K/mm3 (0.00-0.23); BASOPHILS PERCENT AUTO 1 % (0-2); EOSINOPHILS ABSOLUTE AUTO 0.08 K/mm3 (0.00-0.68); EOSINOPHILS PERCENT AUTO 1 % (0-6); Hematocrit 39.7 % (37.0-53.0); Hemoglobin 12.8 g/dL (13.5-17.5); IMMATURE GRAN ABSOLUTE AUTO 0.04 K/mm3 (0.00-0.10); IMMATURE GRAN PERCENT AUTO 1 % (0-1); LYMPHOCYTES ABSOLUTE AUTO 0.87 K/mm3 (0.84-5.20); LYMPHOCYTES PERCENT AUTO 14 % (21-46); MONOCYTES ABSOLUTE AUTO 0.93 K/mm3 (0.16-1.47); MONOCYTES PERCENT AUTO 15 % (4-13); Mean Corpuscular HGB 30.3 pg (26.0-34.0); Mean Corpuscular HGB Conc 32.2 g/dL (31.5-36.5); Mean Corpuscular Volume 94 fL (80-100); Mean Platelet Volume 12.3 fL (9.1-12.4); NEUTROPHILS ABSOLUTE AUTO 4.22 K/mm3 (1.96-9.15); NEUTROPHILS PERCENT AUTO 68 % (41-73); Platelet Count 82 K/mm3 (150-400); RDW Coefficient Variation 14.4 % (11.7-14.2); Red Blood Cell Count 4.23 M/mm3 (4.30-5.90); White Blood Cell Count 6.17 K/mm3 (4.00-11.30)
[2024-07-03 07:21] VITALS: BP 149/76
[2024-07-03 07:43] LABS: Albumin, Blood 2.6 g/dL (3.4-5.0); Anion Gap 10 mmol/L (3-11); Blood Urea Nitrogen 46 mg/dL (8-24); Bun/Creatinine Ratio 24.7 (12.0-20.0); CO2, Blood 24 mmol/L (21-32); Calcium, Blood 8.9 mg/dL (8.5-10.1); Chloride, Blood 110 mmol/L (98-108); Creatinine, Blood 1.86 mg/dL (0.60-1.20); Glomerular Filtration Rate 36 (60-); Glucose, Blood 200 mg/dL (70-99); Phosphorus, Blood 3.4 mg/dL (2.5-4.9); Potassium, Blood 4.3 mmol/L (3.5-5.5); Sodium, Blood 140 mmol/L (136-145)
[2024-07-03] MEDS ORDERED: AmLODIPine Besylate 5 MG Tab PO SCH (09:00)
[2024-07-03] MEDS ORDERED: NS 250 ML IV PRN (09:40)
[2024-07-03 15:50] VITALS: BP 155/76
[2024-07-03 19:37] VITALS: BP 192/92
[2024-07-03 23:52] VITALS: BP 189/91
[2024-07-04 04:08] VITALS: BP 169/92
--- NOTE | 2024-07-04 05:08 | NUR ---
SUMMARY: PT A/OX4, SPECIFIES NEEDS AND IS PLEASANT AND COOPERATIVE W/CARE. HE REPOSITIONS SELF IN BED AND IS ABLE TO SIT AT EOB INDEPENDENTLY BUT REQUIRES BOOST ASSIST. MALE PUREWIC REMAINS IN PLACE TO LCS FOR URGENCY W/FREQUENCY. PT TOLERATES HOME CPAP W/2L O2 BLEED AND SPO2 WNL ON CONT BIOX. SAWMILL TALLY CLERK IS AWARE OF NEED FOR NEW BED SO PT CAN SAFELY WORK W/PHYS.TX. HE PREFERS TO GO HOME W/HOME HEALTH UPON D/C VS SNF. PT IS NSR ON TELE W/1ST DEGREE AV BLOCK AND BBB AT 70'S BPM. NO ACUTE CHANGES, VSS/AFEBRILE. WCTM/REPORT TO DAY RN.
[2024-07-04 05:47] LABS: BASOPHILS ABSOLUTE AUTO 0.03 K/mm3 (0.00-0.23); BASOPHILS PERCENT AUTO 0 % (0-2); EOSINOPHILS ABSOLUTE AUTO 0.15 K/mm3 (0.00-0.68); EOSINOPHILS PERCENT AUTO 2 % (0-6); Hematocrit 38.1 % (37.0-53.0); Hemoglobin 12.6 g/dL (13.5-17.5); IMMATURE GRAN PERCENT AUTO 1 % (0-1); LYMPHOCYTES ABSOLUTE AUTO 1.43 K/mm3 (0.84-5.20); LYMPHOCYTES PERCENT AUTO 20 % (21-46); MONOCYTES ABSOLUTE AUTO 0.72 K/mm3 (0.16-1.47); MONOCYTES PERCENT AUTO 10 % (4-13); Mean Corpuscular HGB 30.6 pg (26.0-34.0); Mean Corpuscular HGB Conc 33.1 g/dL (31.5-36.5); Mean Corpuscular Volume 93 fL (80-100); Mean Platelet Volume 12.3 fL (9.1-12.4); NEUTROPHILS ABSOLUTE AUTO 4.67 K/mm3 (1.96-9.15); NEUTROPHILS PERCENT AUTO 66 % (41-73); Platelet Count 95 K/mm3 (150-400); RDW Coefficient Variation 14.2 % (11.7-14.2); RDW Standard Deviation 48.7 fL (35.1-46.3); Red Blood Cell Count 4.12 M/mm3 (4.30-5.90)
[2024-07-04 06:13] LABS: Albumin, Blood 2.7 g/dL (3.4-5.0); Anion Gap 11 mmol/L (3-11); Blood Urea Nitrogen 45 mg/dL (8-24); Bun/Creatinine Ratio 23.8 (12.0-20.0); CO2, Blood 25 mmol/L (21-32); Calcium, Blood 9.3 mg/dL (8.5-10.1); Chloride, Blood 109 mmol/L (98-108); Creatinine, Blood 1.89 mg/dL (0.60-1.20); Glomerular Filtration Rate 35 (60-); Glucose, Blood 208 mg/dL (70-99); Phosphorus, Blood 4.2 mg/dL (2.5-4.9); Potassium, Blood 4.3 mmol/L (3.5-5.5); Sodium, Blood 141 mmol/L (136-145)
[2024-07-04 09:00] VITALS: BP 156/80
[2024-07-04] MEDS ORDERED: VISBIOME 112.51 EACH PO (11:13)
[2024-07-04] MEDS ORDERED: ONDA4ODT MM (11:14)
[2024-07-04] MEDS ORDERED: LISI20 PO (11:14)
[2024-07-04] MEDS ORDERED: BACTRIM DS TAB1 EAC6 PO (11:14)
--- NOTE | 2024-07-04 14:04 | NUR ---
DISCHARGE NOTE PT DISCHARGED HOME AT 1325. PT PROVIDED W/ VERBAL AND WRITTEN INSTRUCTIONS AND REPORTED UNDERSTANDING. PT A&OX4, VSS, AMB W/ SBA, TOLERATING PO, VOIDING, AND DENIED PAIN. BELONGINGS WERE RETURNED AND PT ESCOURTED OUT VIA W/C BY SANDRA MOLINA.
== END 2024-07-04 14:20 | disposition home health service (06) | DRG 871 ==
LOC: ER 04:51 → PCU 09:35 → ERHOLD 09:35 → MEDS 09:35 → PCU 13:44 → MEDS 07-02 22:02
PROVIDERS: Emergency Medicine; Hospitalist; Internal Medicine Endocrinology, Diabetes & Metabolism; ADMIT Hospitalist
DX: A41.51 Sepsis due to Escherichia coli [E. coli] (principal); J18.9 Pneumonia, unspecified organism; N39.0 Urinary tract infection, site not specified; Z68.42 Body mass index [BMI] 45.0-49.9, adult; N17.9 Acute kidney failure, unspecified; J98.11 Atelectasis; Z66 Do not resuscitate; N13.30 Unspecified hydronephrosis; A41.50 Gram-negative sepsis, unspecified; G47.33 Obstructive sleep apnea (adult) (pediatric); M54.9 Dorsalgia, unspecified; G89.29 Other chronic pain; M10.9 Gout, unspecified; N40.0 Benign prostatic hyperplasia without lower urinary tract symptoms; E11.22 Type 2 diabetes mellitus with diabetic chronic kidney disease; I12.9 Hypertensive chronic kidney disease with stage 1 through stage 4 chronic kidney disease, or unspecified chronic kidney disease; E78.5 Hyperlipidemia, unspecified; E66.01 Morbid (severe) obesity due to excess calories; N18.32 Chronic kidney disease, stage 3b; E11.40 Type 2 diabetes mellitus with diabetic neuropathy, unspecified; J44.9 Chronic obstructive pulmonary disease, unspecified; Z96.0 Presence of urogenital implants; Z98.1 Arthrodesis status; Z98.42 Cataract extraction status, left eye; Z98.41 Cataract extraction status, right eye; Z90.49 Acquired absence of other specified parts of digestive tract; Z98.890 Other specified postprocedural states; Z88.8 Allergy status to other drugs, medicaments and biological substances; Z79.84 Long term (current) use of oral hypoglycemic drugs; Z88.1 Allergy status to other antibiotic agents; Z99.81 Dependence on supplemental oxygen; Z79.85 Long-term (current) use of injectable non-insulin antidiabetic drugs; Z79.01 Long term (current) use of anticoagulants; Z79.2 Long term (current) use of antibiotics
CPT/HCPCS: 36415; 71045; 71250; 74176; 80048; 80053; 80069; 81001; 82947; 83605; 83735; 83880; 84145; 85025; 87040; 87077; 87086; 87186; 87428-QW; 87507; 89055; 93005; 93010; 94762; 96365; 96367; 97110; 97161; 97530; 99285-25; A9270; J0360; J0456; J0696; J1650; J1815; J7030; J7050

== ENCOUNTER 2024-08-23 11:01 | Day surgery (SDC) | payer MEDICARE ==
[~2024-08-23] VITALS: Ht 188 cm; Wt 174.1 kg
[~2024-08-23 11:01] MED LIST changes: +BACTRIM DS TAB1 EAC6 PO; +Bupivacaine 0.5% W/EPI 1:200000 SDV 30 ML Vial ONE; +Erythromycin 0.5% Opth Oint 1 gm ONE; +HYDRA25 PO; +JARDIANCE25 MG PO; +LISI20 PO; +Lidocaine 2%-Epineph 1:100000 20 ML MDV ONE; +METF500 PO; +Midazolam HCl 1MG / ML 2ML Vial ONE; +NS 500 ML IV ONE; +ONDA4ODT MM; +OZEMPIC2 MG/0.75 SC; +VISBIOME 112.51 EACH PO; +XANAX0.25 MG PO
[2024-08-23] MEDS ORDERED: INSULANPEN SC (11:39)
[2024-08-23] MEDS ORDERED: CATAPRES0.1 MG PO (11:40)
[2024-08-23] MEDS ORDERED: CHLO25B PO (11:41)
--- NOTE | 2024-08-23 13:08 | NUR ---
08/23/24 1308 Amisha Akhtar PT CASE CANCELLED DUE TO PT HAVING SEPSIS IN JUNE 2024. PT ALSO TOOK OZEMPIC 5 DAYS AGO[address] CANCELLED BY [address] NINA.
== END 2024-08-23 13:00 | disposition home or self-care (01) ==
LOC: ORSCSDS 11:01
DX: H02.132 Senile ectropion of right lower eyelid (principal); H02.135 Senile ectropion of left lower eyelid; Z53.9 Procedure and treatment not carried out, unspecified reason
CPT/HCPCS: A9270; J2250; J7040